=== PATIENT | female | born 1995 | race Caucasian/White ===

== ENCOUNTER 2023-02-15 12:02 | Inpatient (IN) ==
[2023-02-15] MEDS ORDERED: OXYTOCIN 30 UNITS/500 ML BAG IV PRN ×2 (18:45→21:30)
[2023-02-15] MEDS ORDERED: LIDOCAINE 1% LOCAL 20 ML VIAL INFIL PRN (18:45)
[2023-02-15] MEDS: LACTATED RINGER'S 1,000 ML IV PRN ×2 (19:09→20:07)
[2023-02-15] MEDS ORDERED: SODIUM CHLORIDE 0.9% PF INJ 10 ML VIAL ONE (19:27)
[2023-02-15] MEDS ORDERED: fentaNYL citrate PF 100 MCG/2 ML VIAL ONE (19:27)
[2023-02-15] MEDS ORDERED: ePHEDrine sulfate 50 MG/ML AMP ONE (19:27)
[2023-02-15] MEDS ORDERED: LIDOCAINE 2%/EPINEPHRINE 1:200,000 20 ML PF ONE (19:28)
[2023-02-15] MEDS ORDERED: fentaNYL 2MCG/ML ROPIVACAINE 1.25MG/ML 100 ML BAG EPI ONE (19:28)
[2023-02-15] MEDS ORDERED: BUPIVACAINE 0.25% PF 30 ML VIAL ONE (19:28)
[2023-02-15 19:50] LABS: Hematocrit (blood only) 30.3 % (37.0-47.0); Hemoglobin 10.3 g/dl (12.0-16.0); Mean Corpuscular Hemoglobin 28.7 pg (25.0-34.0); Mean Corpuscular Volume 84.4 fL (80.0-100.0); Mean Platelet Volume 12.5 fL (9.4-12.4); Platelet Count 187 K/uL (130-400); RDW Coefficient of Variation 13.2 % (11.5-14.5); RDW Standard Deviation 40.5 fL (36.4-46.3); Red Blood Count 3.59 M/uL (4.20-5.40); White Blood Count 10.64 K/ul (4.8-10.8)
[2023-02-15] MEDS ORDERED: ROPIVACAINE 0.5% PF 5 MG/ML 20 ML VIAL EPI PRN (20:36)
[2023-02-15] MEDS ORDERED: SODIUM CHLORIDE 0.9% PF INJ 10 ML VIAL EPI STA (20:36)
[2023-02-15] MEDS ORDERED: ePHEDrine sulfate 50 MG/ML AMP IV PRN (20:36)
[2023-02-15] MEDS ORDERED: fentaNYL citrate PF 100 MCG/2 ML VIAL EPI STA (20:36)
[2023-02-15] MEDS ORDERED: fentaNYL citrate PF 100 MCG/2 ML VIAL EPI PRN (20:36)
[2023-02-15] MEDS ORDERED: LIDOCAINE 2%/EPINEPHRINE 1:200,000 20 ML PF EPI STA (20:36)
[2023-02-15] MEDS ORDERED: SODIUM CHLORIDE 0.9% PF INJ 10 ML VIAL EPI PRN (20:36)
[2023-02-15] MEDS ORDERED: diphenhydrAMINE 50 MG/ML VIAL IV PRN (20:36)
[2023-02-15] MEDS ORDERED: NALOXONE HCL 0.4 MG/1 ML VIAL/CARP IV PRN (20:36)
[2023-02-15] MEDS ORDERED: BUPIVACAINE 0.25% PF 30 ML VIAL EPI PRN (20:36)
[2023-02-15] MEDS ORDERED: NALOXONE HCL 1 MG in SODIUM CHLORIDE 0.9% 1000ML 1,000 ML IV PRN (20:36)
[2023-02-15] MEDS ORDERED: LIDOCAINE 2% MPF LOCAL 5 ML VIAL EPI PRN (20:36)
[2023-02-15] MEDS ORDERED: ONDANSETRON INJ 2 MG/ML 2 ML VIAL IV PRN (20:36)
[2023-02-15] MEDS ORDERED: BUPIVACAINE 0.25% PF 30 ML VIAL EPI STA (20:36)
[2023-02-15] MEDS ORDERED: NALBUPHINE HCL INJ 10 MG/ML AMP IV PRN (20:36)
--- NOTE | 2023-02-15 20:36 | Anesthesiology Consultation ---
Date of Service February 15, 2023 Assessment & Plan Chart Review Chart Review: Patient NOT seen in Pre Admission Testing and Acceptable Risk for Labor Epidural Consults Requested none ASA ASA2 Proposed Anesthesia Anesthesia Type: Labor Epidural Risk / Benefits Reviewed With: PT / POA / Parent / Guardian, Accepts Plan and Informed Consent Obtained History Height/Weight Height: 5 ft 4 in Weight: 89.811 kg Allergies Allergy/AdvReac Type Severity Reaction Status Date / Time amoxicillin Allergy Unknown Hives Verified 02/15/23 12:22 cefixime [From Suprax] Allergy Unknown Hives Verified 02/15/23 12:22 ceftibuten [From Cedax] Allergy Unknown Hives Verified 02/15/23 12:22 Penicillins Allergy Unknown Hives Verified 02/15/23 12:22 Sulfa (Sulfonamide Allergy Unknown Hives Verified 02/15/23 12:22 Antibiotics) sulfamethoxazole Allergy Unknown Hives Verified 02/15/23 12:22 [From Bactrim] trimethoprim [From Bactrim] Allergy Unknown Hives Verified 02/15/23 12:22 Medications Home Medications Medication Instructions Recorded Confirmed Last Taken prenat.vits,adriana,jfd-[id number]-[id number] 1 tab PO DAILY 06/26/22 02/15/23 02/15/23 Active Medications Generic Name Dose Route Start Last Admin Trade Name Freq PRN Reason Stop Dose Admin Lactated Ringer's 1,000 mls @ 125 mls/hr 02/15/23 18:45 02/15/23 20:07 Lr IV 02/17/23 18:44 999 mls/hr .Q8H PRN Administration L&D Protocol Protocol Past Medical History Medical History (Updated 02/15/23 @ 12:19 by Mile Connolly RN) No known health problems Exercise / Class Metabolic Activity II 4-5 Yardwork/Stairs/Walk up hill Past Family History Family History Grandfather (Maternal) Diabetes Cancer of kidney Mother No problems noted. Grandmother (Paternal) No problems noted. Grandmother (Maternal) Sarcoma Denies family history of Ovarian cancer Breast cancer Colorectal cancer Past Surgical History Surgical History Hx of foot surgery Past Anesthesia History No Hx of Anesthesia Complications and No Family Hx of Anesthesia Complications History of PONV No Hx of PONV and No Hx of Motion Sickness Social History Smoking Status: Never smoker Do You Dip or Chew Tobacco: No Hx Alcohol Use: No Hx Substance Use: No substance use type: does not use Physical Exam Vital Signs Last Vital Signs Temp 37.0 C 02/15/23 17:04 Pulse 71 02/15/23 19:18 Resp 18 02/15/23 17:04 BP 122/68 02/15/23 19:18 ENMT Mouth: no dentition abnormality Thyromental Distance: > or= 3.5 Finger Breadths Mallampati Class: II Neck normal visual inspection Respiratory normal respiratory effort Auscultation: lungs clear to auscultation bilaterally Cardiovascular Rate/Rhythm: regular rate and regular rhythm Psychiatric Orientation: alert Testing Laboratory Results 02/15/23 19:10
--- NOTE | 2023-02-15 21:25 | History & Physical Report ---
Date of Service February 15, 2023 Assessment & Plan (1) Supervision of normal intrauterine in primigravida: Plan: Sunita is a 27-year-old currently at 40 weeks 5 days gestational age in labor. 1: Fetus-reactive NST 2: Labor-progressing spontaneously. AROM clear. Will augment as needed 3: GBS negative. 4: Vitals within normal limits. (2) Normal labor: Admission and Anticipated Discharge Date Admission Date: February 15, 2023 History of Present Illness Primary Care Provider: NO PCP Sunita is a 27-year-old currently at 40 weeks 5 days gestational age presents in labor. Denies leakage of fluid or vaginal bleeding reported good movement. has been uncomplicated to date. OB Labs: Blood Type A Positive 07/07/22 Antibody Screen NEGATIVE 07/07/22 Hemoglobin 11.9 g/dl (12.0-16.0) L 11/18/22 Hematocrit 34.8 % (37.0-47.0) L 11/18/22 Mean Corpuscular Volume 90.4 fL (80.0-100.0) 07/07/22 Platelet Count 230 K/uL (130-400) 07/07/22 Rubella IgG Antibody Immune (Immune) 07/07/22 Rapid Plasma Reagin Nonreactive (Nonreactive) 07/07/22 Hepatitis B Surface Antigen. NON-REACTIVE (NON-REACTIVE) 07/07/22 Hepatitis C Antibody (EIA) NON-REACTIVE (NON-REACTIVE) 07/07/22 HIV (1&2) Ag and Ab Confirmation NON-REACTIVE (NON-REACTIVE) 07/07/22 Glucose 1 Hour 50 gm Load 125 mg/dl (70-130) 11/18/22 Maternal Serum Alpha Fetoprotein 47.6 ng/mL 08/25/22 OB Optional Labs: Chlamydia trachomatis RNA Not Detected (NotDetected) 07/07/22 Neisseria gonorrhoeae RNA Not Detected (NotDetected) 07/07/22 Alpha Fetoprotein Triple Screen SEE NOTE 08/25/22 Labs Reviewed: cf/sma-negative--mln cfdna-low risk--mln Allergies Allergy/AdvReac Type Severity Reaction Status Date / Time amoxicillin Allergy Unknown Hives Verified 02/15/23 12:22 cefixime [From Suprax] Allergy Unknown Hives Verified 02/15/23 12:22 ceftibuten [From Cedax] Allergy Unknown Hives Verified 02/15/23 12:22 Penicillins Allergy Unknown Hives Verified 02/15/23 12:22 Sulfa (Sulfonamide Allergy Unknown Hives Verified 02/15/23 12:22 Antibiotics) sulfamethoxazole Allergy Unknown Hives Verified 02/15/23 12:22 [From Bactrim] trimethoprim [From Bactrim] Allergy Unknown Hives Verified 02/15/23 12:22 Home Medications Medication Instructions Recorded Confirmed Type prenat.vits,adriana,vei-mikj-vrlby 1 tab PO DAILY 06/26/22 02/15/23 History Patient History Medical History (Updated 02/15/23 @ 21:23 by Juan Miguel Vieira MD) No known health problems Surgical History Hx of foot surgery Family History Grandfather (Maternal) Diabetes Cancer of kidney Mother No problems noted. Grandmother (Paternal) No problems noted. Grandmother (Maternal) Sarcoma Denies family history of Ovarian cancer Breast cancer Colorectal cancer Social History Smoking Status: Never smoker Do You Dip or Chew Tobacco: No; Hx Alcohol Use: No Hx Substance Use: No Preferred Language: Romansh Bone Drier Required: No Beliefs That Will Affect Care: None marital status: marital status details: red (29) [phone] Current Living Situation: Spouse Current Living Situation Comment: lives with spouse, 1 dog. current occupational status: employed current occupation: [employer]. Feels Safe at Home: Yes Safety Concerns: Feels Safe At This Time Physical Activity Frequency: Daily Assistive Devices: None Physical Exam Genitourinary: normal external appearance OB Exam Monitor Tracing: + external FHT monitor used, + external uterine monitor used, + category I and + normal FHT variability Progressed from 3 cm dilated to 4 cm dilated over approximately 2 hours. Patient having regular painful contractions. Results & Data Vital Signs (Past 12 Hours) Vital Signs Temp Pulse Resp BP Pulse Ox 02/15/23 21:00 74 99 02/15/23 20:57 71 128/65 02/15/23 20:56 77 126/60 02/15/23 20:55 79 99 02/15/23 20:54 70 121/59 L 02/15/23 20:52 73 124/59 L 02/15/23 20:50 100 02/15/23 20:50 73 02/15/23 20:50 75 124/64 02/15/23 20:48 72 133/65 02/15/23 20:45 88 100 02/15/23 20:46 88 135/66 02/15/23 20:40 100 02/15/23 20:40 93 H 02/15/23 20:40 99 H 132/86 02/15/23 20:35 88 100 02/15/23 19:18 71 122/68 02/15/23 17:04 18 02/15/23 17:04 37.0 C 18 02/15/23 17:10 71 118/69 02/15/23 12:17 70 123/74 02/15/23 12:18 37.0 C 18 Coding Level of Care Code None Diagnoses Supervision of normal intrauterine in primigravida Z34.00 Normal labor O80; Z37.9
[2023-02-16] MEDS ORDERED: NURSING L&D Epidural Breakthrough Pain Update ONE (01:03)
[2023-02-16] MEDS: fentaNYL 2MCG/ML ROPIVACAINE 1.25MG/ML 100 ML BAG EPI PRN ×2 (02:37→08:55)
[2023-02-16] MEDS: LACTATED RINGER'S 1,000 ML IV PRN ×2 (04:48→10:41)
--- NOTE | 2023-02-16 09:07 | Labor Progress Brief Note ---
Date of Service February 16, 2023 Subjective comfortable and pushing, nauseated. Assessment & Plan (1) Normal labor: Plan continue second stage. Fetus category 2 and reassuring with occasional variable. Pushing with good effort. Is going to be a tight fit. Admission and Anticipated Discharge Date Admission Date: February 15, 2023 Physical Exam Physical Exam: cx--c/c/+1 toco--q2-4min, pit at 10 efm--130s with mod variability, accels present, occasional variable Results & Data Vital Signs (Past 12 Hours) Vital Signs Temp Pulse Resp BP Pulse Ox 02/16/23 09:00 59 L 99 02/16/23 08:58 57 L 129/65 02/16/23 08:55 60 100 02/16/23 08:50 72 99 02/16/23 08:45 60 100 02/16/23 08:43 63 127/61 02/16/23 08:40 88 100 02/16/23 08:35 85 99 02/16/23 08:30 82 20 100 02/16/23 08:29 65 113/56 L 02/16/23 08:25 77 100 02/16/23 08:20 83 100 02/16/23 08:15 82 100 02/16/23 08:14 61 136/61 02/16/23 08:10 58 L 98 02/16/23 08:05 59 L 99 02/16/23 08:00 64 18 98 02/16/23 07:59 60 119/61 02/16/23 07:55 61 98 02/16/23 07:50 56 L 99 02/16/23 07:45 60 99 02/16/23 07:43 69 126/71 02/16/23 07:40 69 98 02/16/23 07:35 69 98 02/16/23 07:30 36.9 C 78 18 98 02/16/23 07:29 65 130/68 02/16/23 07:25 68 99 02/16/23 07:20 63 97 02/16/23 07:15 70 97 02/16/23 07:14 75 111/59 L 02/16/23 07:10 68 97 02/16/23 07:05 63 98 02/16/23 07:00 66 96 02/16/23 06:58 60 138/74 02/16/23 06:55 61 98 02/16/23 06:50 60 97 02/16/23 06:45 58 L 98 02/16/23 06:44 63 133/69 02/16/23 06:40 61 97 02/16/23 06:35 59 L 98 02/16/23 06:30 61 97 02/16/23 06:29 60 128/70 02/16/23 06:25 60 98 02/16/23 06:20 62 98 02/16/23 06:15 65 97 02/16/23 06:13 62 129/71 02/16/23 06:10 65 98 02/16/23 06:05 68 99 02/16/23 06:00 64 99 02/16/23 05:58 58 L 136/72 02/16/23 05:55 60 98 02/16/23 05:50 63 98 02/16/23 05:45 60 98 02/16/23 05:43 65 147/72 H 02/16/23 05:40 72 98 02/16/23 05:35 71 99 02/16/23 05:30 72 99 02/16/23 05:28 78 119/73 02/16/23 05:25 67 99 02/16/23 05:20 96 H 99 02/16/23 05:15 77 98 02/16/23 05:14 83 139/82 02/16/23 05:10 71 97 02/16/23 05:05 63 99 02/16/23 05:00 62 98 02/16/23 04:58 69 131/70 02/16/23 04:55 60 98 02/16/23 04:50 67 99 02/16/23 04:49 78 126/74 91 02/16/23 04:45 75 98 02/16/23 04:40 56 L 97 02/16/23 04:35 60 97 02/16/23 04:30 36.7 C 58 L 16 97 02/16/23 04:25 58 L 97 02/16/23 04:20 64 98 02/16/23 04:15 66 100 02/16/23 04:10 64 99 02/16/23 04:05 65 98 02/16/23 04:00 81 99 02/16/23 03:59 72 136/89 02/16/23 03:55 75 99 02/16/23 03:50 77 99 02/16/23 03:45 87 99 02/16/23 03:43 77 117/63 02/16/23 03:40 75 98 02/16/23 03:35 85 100 02/16/23 03:30 63 97 02/16/23 03:28 60 105/56 L 02/16/23 03:25 59 L 97 02/16/23 03:20 60 98 02/16/23 03:15 63 98 02/16/23 03:13 59 L 115/60 02/16/23 03:10 59 L 97 02/16/23 03:05 62 98 02/16/23 03:00 61 99 02/16/23 02:59 63 121/65 02/16/23 02:55 61 100 02/16/23 02:50 73 100 02/16/23 02:45 62 100 02/16/23 02:43 67 113/60 02/16/23 02:40 71 100 02/16/23 02:35 80 100 02/16/23 02:30 78 99 02/16/23 02:28 83 123/73 02/16/23 02:25 92 H 100 02/16/23 02:24 79 113/65 02/16/23 02:20 99 02/16/23 02:20 79 02/16/23 02:20 78 171/114 H 02/16/23 02:15 65 98 02/16/23 02:10 63 98 02/16/23 02:05 76 99 02/16/23 02:00 75 98 02/16/23 01:59 80 115/80 02/16/23 01:55 63 97 02/16/23 01:50 59 L 97 02/16/23 01:45 57 L 99 02/16/23 01:44 55 L 91/52 L 02/16/23 01:40 55 L 97 02/16/23 01:35 61 98 02/16/23 01:30 57 L 99 02/16/23 01:28 65 85/51 L 02/16/23 01:25 36.7 C 66 16 99 02/16/23 01:20 83 99 02/16/23 01:15 60 100 02/16/23 01:10 75 99 02/16/23 01:05 61 98 02/16/23 01:00 36.7 C 84 16 99 02/16/23 00:55 72 99 02/16/23 00:50 64 98 02/16/23 00:45 77 97 02/16/23 00:43 70 132/77 02/16/23 00:40 64 98 02/16/23 00:35 63 98 02/16/23 00:30 68 98 02/16/23 00:28 65 130/88 02/16/23 00:25 62 98 02/16/23 00:20 70 100 02/16/23 00:15 70 99 02/16/23 00:14 72 125/84 02/16/23 00:10 76 100 02/16/23 00:05 63 98 02/16/23 00:00 67 99 02/15/23 23:58 74 130/68 02/15/23 23:55 81 99 02/15/23 23:50 85 100 02/15/23 23:45 71 100 02/15/23 23:43 68 134/75 02/15/23 23:40 73 100 02/15/23 23:35 72 100 02/15/23 23:30 75 100 02/15/23 23:29 64 138/78 02/15/23 23:25 90 100 02/15/23 23:20 81 100 02/15/23 23:15 87 100 02/15/23 23:14 69 120/85 02/15/23 23:10 64 100 02/15/23 23:05 82 98 02/15/23 23:00 74 99 02/15/23 22:59 71 114/60 02/15/23 22:55 71 97 02/15/23 22:50 59 L 98 02/15/23 22:45 63 98 02/15/23 22:44 65 131/64 02/15/23 22:40 64 97 02/15/23 22:35 66 96 02/15/23 22:30 60 97 02/15/23 22:28 65 119/56 L 02/15/23 22:25 62 99 02/15/23 22:20 76 100 02/15/23 22:15 74 99 02/15/23 22:13 73 131/69 02/15/23 22:10 69 98 02/15/23 22:05 72 99 02/15/23 22:00 69 99 02/15/23 21:59 68 132/65 02/15/23 21:55 66 99 02/15/23 21:50 69 99 02/15/23 21:45 79 100 02/15/23 21:44 120/70 02/15/23 21:40 81 100 02/15/23 21:35 76 99 02/15/23 21:30 36.7 C 70 16 98 02/15/23 21:29 73 134/65 02/15/23 21:25 68 99 02/15/23 21:20 69 98 02/15/23 21:15 81 98 02/15/23 21:13 73 139/66 02/15/23 21:10 88 99 02/15/23 21:05 72 99 Coding Level of Care Code None Diagnoses Normal labor O80; Z37.9
--- NOTE | 2023-02-16 10:51 | Labor Progress Brief Note ---
Date of Service February 16, 2023 Subjective Back pain with contractions. FHT 130-140s, mod variability, variable decels with pushing, returns to baseline after push [place] Q 2-3 SVE 10/100/+2 station, good pushing effort. Continue labor. Anticipate . Assessment & Plan Admission and Anticipated Discharge Date Admission Date: February 15, 2023 Results & Data Vital Signs (Past 12 Hours) Vital Signs Temp Pulse Resp BP Pulse Ox 02/16/23 10:46 71 98 02/16/23 10:43 81 111/59 L 02/16/23 10:41 66 98 02/16/23 10:36 66 97 02/16/23 10:31 61 99 02/16/23 10:29 61 119/62 02/16/23 10:26 69 100 02/16/23 10:21 69 98 02/16/23 10:16 68 97 02/16/23 10:15 58 L 118/53 L 02/16/23 10:10 69 98 02/16/23 10:05 73 97 02/16/23 10:04 77 93 02/16/23 10:00 75 20 98 02/16/23 09:59 71 92 02/16/23 09:55 68 98 02/16/23 09:50 74 98 02/16/23 09:45 71 99 02/16/23 09:40 65 98 02/16/23 09:35 69 98 02/16/23 09:33 20 02/16/23 09:33 36.8 C 20 02/16/23 09:32 69 89 L 02/16/23 09:30 58 L 20 98 02/16/23 09:29 59 L 100/55 L 02/16/23 09:25 61 98 02/16/23 09:26 65 93 02/16/23 09:20 63 100 02/16/23 09:15 73 100 02/16/23 09:14 58 L 113/59 L 02/16/23 09:10 66 100 02/16/23 09:07 20 02/16/23 09:07 20 02/16/23 09:05 61 98 02/16/23 09:00 59 L 20 99 02/16/23 08:58 57 L 129/65 02/16/23 08:55 60 100 02/16/23 08:50 72 99 02/16/23 08:45 60 100 02/16/23 08:43 63 127/61 02/16/23 08:40 88 100 02/16/23 08:35 85 99 02/16/23 08:30 82 20 100 02/16/23 08:29 65 113/56 L 02/16/23 08:25 77 100 02/16/23 08:20 83 100 02/16/23 08:15 82 100 02/16/23 08:14 61 136/61 02/16/23 08:10 58 L 98 02/16/23 08:05 59 L 99 02/16/23 08:00 64 18 98 02/16/23 07:59 60 119/61 02/16/23 07:55 61 98 02/16/23 07:50 56 L 99 02/16/23 07:45 60 99 02/16/23 07:43 69 126/71 02/16/23 07:40 69 98 02/16/23 07:35 69 98 02/16/23 07:30 36.9 C 78 18 98 02/16/23 07:29 65 130/68 02/16/23 07:25 68 99 02/16/23 07:20 63 97 02/16/23 07:15 70 97 02/16/23 07:14 75 111/59 L 02/16/23 07:10 68 97 02/16/23 07:05 63 98 02/16/23 07:00 66 96 02/16/23 06:58 60 138/74 02/16/23 06:55 61 98 02/16/23 06:50 60 97 02/16/23 06:45 58 L 98 02/16/23 06:44 63 133/69 02/16/23 06:40 61 97 02/16/23 06:35 59 L 98 02/16/23 06:30 61 97 02/16/23 06:29 60 128/70 02/16/23 06:25 60 98 02/16/23 06:20 62 98 02/16/23 06:15 65 97 02/16/23 06:13 62 129/71 02/16/23 06:10 65 98 02/16/23 06:05 68 99 02/16/23 06:00 64 99 02/16/23 05:58 58 L 136/72 02/16/23 05:55 60 98 02/16/23 05:50 63 98 02/16/23 05:45 60 98 02/16/23 05:43 65 147/72 H 02/16/23 05:40 72 98 02/16/23 05:35 71 99 02/16/23 05:30 72 99 02/16/23 05:28 78 119/73 02/16/23 05:25 67 99 02/16/23 05:20 96 H 99 02/16/23 05:15 77 98 02/16/23 05:14 83 139/82 02/16/23 05:10 71 97 02/16/23 05:05 63 99 02/16/23 05:00 62 98 02/16/23 04:58 69 131/70 02/16/23 04:55 60 98 02/16/23 04:50 67 99 02/16/23 04:49 78 126/74 91 02/16/23 04:45 75 98 02/16/23 04:40 56 L 97 02/16/23 04:35 60 97 02/16/23 04:30 36.7 C 58 L 16 97 02/16/23 04:25 58 L 97 02/16/23 04:20 64 98 02/16/23 04:15 66 100 02/16/23 04:10 64 99 02/16/23 04:05 65 98 02/16/23 04:00 81 99 02/16/23 03:59 72 136/89 02/16/23 03:55 75 99 02/16/23 03:50 77 99 02/16/23 03:45 87 99 02/16/23 03:43 77 117/63 02/16/23 03:40 75 98 02/16/23 03:35 85 100 02/16/23 03:30 63 97 02/16/23 03:28 60 105/56 L 02/16/23 03:25 59 L 97 02/16/23 03:20 60 98 02/16/23 03:15 63 98 02/16/23 03:13 59 L 115/60 02/16/23 03:10 59 L 97 02/16/23 03:05 62 98 02/16/23 03:00 61 99 02/16/23 02:59 63 121/65 02/16/23 02:55 61 100 07/31/23 02:50 73 100 02/16/23 02:45 62 100 02/16/23 02:43 67 113/60 02/16/23 02:40 71 100 02/16/23 02:35 80 100 02/16/23 02:30 78 99 02/16/23 02:28 83 123/73 02/16/23 02:25 92 H 100 02/16/23 02:24 79 113/65 02/16/23 02:20 99 02/16/23 02:20 79 02/16/23 02:20 78 171/114 H 02/16/23 02:15 65 98 02/16/23 02:10 63 98 02/16/23 02:05 76 99 02/16/23 02:00 75 98 02/16/23 01:59 80 115/80 02/16/23 01:55 63 97 02/16/23 01:50 59 L 97 02/16/23 01:45 57 L 99 02/16/23 01:44 55 L 91/52 L 02/16/23 01:40 55 L 97 02/16/23 01:35 61 98 02/16/23 01:30 57 L 99 02/16/23 01:28 65 85/51 L 02/16/23 01:25 36.7 C 66 16 99 02/16/23 01:20 83 99 02/16/23 01:15 60 100 02/16/23 01:10 75 99 02/16/23 01:05 61 98 02/16/23 01:00 36.7 C 84 16 99 02/16/23 00:55 72 99 02/16/23 00:50 64 98 02/16/23 00:45 77 97 02/16/23 00:43 70 132/77 02/16/23 00:40 64 98 02/16/23 00:35 63 98 02/16/23 00:30 68 98 02/16/23 00:28 65 130/88 02/16/23 00:25 62 98 02/16/23 00:20 70 100 02/16/23 00:15 70 99 02/16/23 00:14 72 125/84 02/16/23 00:10 76 100 02/16/23 00:05 63 98 07/31/23 00:00 67 99 02/15/23 23:58 74 130/68 02/15/23 23:55 81 99 02/15/23 23:50 85 100 02/15/23 23:45 71 100 02/15/23 23:43 68 134/75 02/15/23 23:40 73 100 02/15/23 23:35 72 100 02/15/23 23:30 75 100 02/15/23 23:29 64 138/78 02/15/23 23:25 90 100 02/15/23 23:20 81 100 02/15/23 23:15 87 100 02/15/23 23:14 69 120/85 02/15/23 23:10 64 100 02/15/23 23:05 82 98 02/15/23 23:00 74 99 02/15/23 22:59 71 114/60 02/15/23 22:55 71 97 Coding Level of Care Code None Diagnoses
[2023-02-16] MEDS ORDERED: HYDROCORTISONE ACETATE 25 MG SUPP PR PRN (11:57)
[2023-02-16] MEDS ORDERED: oxyCODONE/ACETAMINOPHEN 5mg/325mg TAB PO PRN (11:57)
[2023-02-16] MEDS ORDERED: BENZOCAINE 20% SPRY 85 APPLN/85 GM CAN EXT PRN (11:57)
[2023-02-16] MEDS ORDERED: bisacodyL 10 MG SUPP PR PRN (11:57)
[2023-02-16] MEDS ORDERED: ACETAMINOPHEN 325 MG TAB PO PRN (11:57)
[2023-02-16] MEDS ORDERED: OXYTOCIN 30 UNITS/500 ML BAG IV PRN (11:57)
[2023-02-16] MEDS ORDERED: DIPHTHERIA/TETANUS/PERTUSSIS Vaccine (Tdap, Age 7+yrs) 0.5mL SYR/VL IM ONE (11:57)
--- NOTE | 2023-02-16 11:58 | Delivery Summary ---
Vaginal Delivery Summary Date of Service February 16, 2023 Vaginal Delivery Summary and 1st Degree LAC Vaginal Delivery Summary: Pre-delivery diagnoses: 27yo @ 40 5/7, spontaneous labor Post-delivery diagnoses: same Procedure: spontaneous vaginal delivery Surgeon: Puja Aviles DO Complications: none Findings: Viable female . Apgars: 8/9 . Weight pending, please see nursery records Estimated blood loss: 300ml Description of delivery: The patient progressed to complete with epidural anesthesia. She then began to push. She spontaneously vaginally delivered a viable from the cephalic presentation. The head delivered in NELSON position. The anterior shoulder delivered, followed by the posterior shoulder, followed by the body. No nuchal cord. The baby was placed on mother's abdomen, did not have immediate cry - therefore cord was immediately clamped/cut and the baby handed off to nursery team. Baby crying before 1min with resuscitative efforts. A segment was retained for cord gases. Cord blood was obtained. The placenta was delivered spontaneously intact with a 3-vessel cord. The uterus and vagina were swept of clots and debris. IV pitocin was given. The uterus became firm. The cervix, vagina, and perineum were inspected and 1st degree perineal laceration, repaired with 3-0 Vicryl in standard fashion. Excellent hemostasis was observed. The mother and baby are recovering in stable and good condition in the room. Sponge, needle and instrument counts were correct x 2. Puja Aviles DO [facility] Vaginal Delivery Charge Vaginal Delivery Codes: 48632 global code for the antepartum, delivery, and post- Delivery Type Details: and 1st Degree LAC
[2023-02-16] MEDS ORDERED: CLINDAMYCIN/D5W 900 MG/50 ML BAG IV SCH (12:00)
[2023-02-16] MEDS ORDERED: OXYTOCIN 30 UNITS/500ML NSS IV ONE (12:03)
[2023-02-16 12:10] LABS: Base Excess Cord Arterial Bld -6.2 mEq/L (-9-1.8); CO2 Cord Arterial Blood 45 mmHg (39.1-73.5); HCO3 Cord Arterial Blood 21 mmol/L (19.7-28.5); Oxygen Sat Cord Arterial Blood < 60.0 % (<60); PO2 Cord Arterial Blood 23 mmHg (4.1-31.7); pH Cord Arterial Blood 7.27 (7.1-7.38)
[2023-02-16 12:12] LABS: Cord Venous Blood HCO3 20 mmol/L (18.4-26.8); Cord Venous Blood PCO2 38 mmHg (30.4-57.2); Cord Venous Blood PO2 31 mmHg (14.1-43.3); Cord Venous Blood pH 7.32 (7.20-7.44); O2 Saturation Cord Venous Bld < 60.0 % (<68)
[2023-02-16] MEDS: 300mg Q8H IV SCH ×2 (12:38→20:24)
[2023-02-16] MEDS: 600mg Q8H IV SCH ×2 (12:39→20:24)
--- NOTE | 2023-02-16 12:41 | Anesthesia Procedure Note ---
Date of Service February 16, 2023 Anesthesia Post Epidural Note Vital Signs Vital Signs: Temp Pulse Resp BP Pulse Ox 36.8 C 58 L 20 121/56 L 97 02/16/23 10:50 02/16/23 12:18 02/16/23 11:00 02/16/23 12:18 02/16/23 12:06 Pain Intensity Back: Pain Intensity: 0 Notes Mental Status: alert / awake / arousable and participated in evaluation Nausea / Vomiting: adequately controlled Pain: adequately controlled Airway Patency, RR, SpO2: stable & adequate BP & HR: stable & adequate Hydration State: stable & adequate Neuraxial Anesthesia: was administered and sensory block is resolving Anesthetic Complications: no major complications apparent and Pt Satisfied with anesthetic care Epidural: Removed without complications and With tip intact
[2023-02-16] MEDS: DOCUSATE SODIUM 100 MG CAP PO SCH (20:50)
[2023-02-16] MEDS: IBUPROFEN 600 MG TAB PO PRN (23:09)
[2023-02-17] MEDS: 600mg Q8H IV SCH ×2 (04:18→04:59)
[2023-02-17] MEDS: 300mg Q8H IV SCH ×2 (04:18→04:58)
[2023-02-17 06:18] LABS: Hematocrit (blood only) 24.5 % (37.0-47.0); Hemoglobin 8.2 g/dl (12.0-16.0)
--- NOTE | 2023-02-17 07:11 | Obstetrical Progress Note ---
Date of Service <Charline Foley MD - Last Filed: 02/17/23 08:41> February 17, 2023 Assessment & Plan <Charline Foley MD - Last Filed: 02/17/23 08:41> (1) Spontaneous vaginal delivery: Patient with the above mentioned history and findings was evaluated at bedside and found awake, alert, oriented in all spheres, afebrile, and in no acute distress. Overall, patient is doing well clinically. Therefore, will encourage ambulation as tolerated and will resume regular diet. Will continue monitoring pain levels and management with current regimen. Patient is encouraged to breastfeed and to notify changes in normal lochia such as excessive bleeding (using more than 1 pad per hour), foul smell, or purulent appearance. Should she remain clinically and hemodynamically stable, will consider discharge tomorrow. All questions were answered. <Puja Aviles DO - Last Filed: 02/17/23 09:07> (1) Spontaneous vaginal delivery: Subjective <Charline Foley MD - Last Filed: 02/17/23 08:41> Sunita is a 27 y/o female who is now PPD # 1 following at 40 6/7 weeks. Reports feeling well overall this morning. Refers moderate abdominal cramping & 3/10 pain well managed on analgesics. Voiding spontaneously. Tolerating meals overnight and able to ambulate some. She is passing gas but has not had a bowel movement. Some persistent lochia with some improvement this morning. . Blood type is A positive and Hb is 8.2. She is GBS negative and Rubella immune. Constitutional: no fever, no chills or no sweats Denies shortness of breath or difficulty breathing Cardiovascular: no chest pain or no palpitations Breast: no breast pain Genitourinary (female): no dysuria Neurologic: no headache(s) Denies changes in vision Physical Exam <Charline Foley MD - Last Filed: 02/17/23 08:41> General: Alert. Oriented to person, time, and place. Afebrile. No acute distress. Eyes: pupils equal and reactive to light bilaterally, extraocular movements intact. Cardiac: Regular rate and rhythm, no murmurs/rubs/gallops. Respiratory: Clear to auscultation bilaterally a/p, no wheezes/rales/rhonchi. No increased work of breathing. Symmetrical chest rise. No respiratory distress. Abdomen: Soft, nontender, nondistended. Bowel sounds present. Uterus: Uterine fundus firm, non-tender, and palpable below umbilicus. Lower Extremities: Bilateral LE swelling without pitting. No deep calf pain. Tiesha's negative bilaterally. Psych: Euthymic affect. Mood and affect congruence. Regular speech rate and content. Results & Data <Charline Foley MD - Last Filed: 02/17/23 08:41> Vital Signs (Past 12 Hours) Vital Signs Temp Pulse Resp BP Pulse Ox O2 Del Method 02/17/23 03:43 36.5 C 75 20 113/72 99 Room Air 02/16/23 23:06 36.8 C 79 18 109/71 97 Room Air 02/16/23 20:08 37.1 C 89 18 122/70 97 Room Air <Puja Aviles DO - Last Filed: 02/17/23 09:07> Co-Signing Physician Notes Resident Physician Supervision Note: I was present with Dr. Foley during the history and exam. I discussed the case with the resident and agree with the findings and plan as documented in the note. Any exceptions or clarifications are listed here: PPD#1 doing well. Working on . Documented By: Puja Aviles DO Resident Activity Tracking <Charline Foley MD - Last Filed: 02/17/23 08:41> Resident Involvement: Resident Care Provided Care Provided: OB Delivery
[2023-02-17] MEDS: PRENATAL VITAMIN 1 TAB PO SCH (08:39)
[2023-02-17] MEDS: DOCUSATE SODIUM 100 MG CAP PO SCH ×2 (08:39→20:32)
[2023-02-17] MEDS: IBUPROFEN 600 MG TAB PO PRN ×3 (09:15→21:29)
[2023-02-17] MEDS ORDERED: Nursing to Pharmacy Communication SCH (10:30)
[2023-02-17] MEDS ORDERED: bisacodyL 5 MG TABEC PO SCH (20:00)
[2023-02-18] MEDS: IBUPROFEN 600 MG TAB PO PRN ×2 (06:02→09:58)
--- NOTE | 2023-02-18 06:56 | Obstetrical Progress Note ---
Date of Service <Charline Foley MD - Last Filed: 02/18/23 06:57> February 18, 2023 Assessment & Plan <Charline Foley MD - Last Filed: 02/18/23 06:57> (1) Spontaneous vaginal delivery: Patient with the above mentioned history and findings was evaluated at bedside and found clinically and hemodynamically stable, afebrile, awake, alert, oriented x3, and in no acute distress. Overall she seems stable and is fit to go home today. Discharge instructions were discussed. Her pain will be managed with Tylenol, Advil, Ibuprofen, or Motrin PRN. She is to call to schedule and appointment with her OB for 6 weeks after discharge for her follow up evaluation. All questions were answered. <Yazmin Liriano MD - Last Filed: 02/18/23 07:08> (1) Spontaneous vaginal delivery: Subjective <Charline Foley MD - Last Filed: 02/18/23 06:57> Sunita is a 27 y/o female who is now PPD # 2 following at 40 6/7 weeks. Reports feeling well overall this morning. Refers moderate abdominal cramping & 2/10 pain well managed on analgesics. Voiding spontaneously. Tolerating meals overnight and able to ambulate some. She is passing gas but has not had a bowel movement. Some persistent lochia with some improvement this morning. . Blood type is A positive and Hb is 8.2. She is GBS negative and Rubella immune. Constitutional: no fever, no chills or no sweats Denies shortness of breath or difficulty breathing Cardiovascular: no chest pain or no palpitations Breast: no breast pain Genitourinary (female): no dysuria Neurologic: no headache(s) Denies changes in vision Physical Exam <Charline Foley MD - Last Filed: 02/18/23 06:57> General: Alert. Oriented to person, time, and place. Afebrile. No acute d istress. Eyes: pupils equal and reactive to light bilaterally, extraocular movements intact. Cardiac: Regular rate and rhythm, no murmurs/rubs/gallops. Respiratory: Clear to auscultation bilaterally a/p, no wheezes/rales/rhonchi. No increased work of breathing. Symmetrical chest rise. No respiratory distress. Abdomen: Soft, nontender, nondistended. Bowel sounds present. Uterus: Uterine fundus firm, non-tender, and palpable below umbilicus. Lower Extremities: Bilateral LE swelling without pitting. No deep calf pain. Tiesha's negative bilaterally. Psych: Euthymic affect. Mood and affect congruence. Regular speech rate and content. Results & Data <Charline Foley MD - Last Filed: 02/18/23 06:57> Vital Signs (Past 12 Hours) Vital Signs Temp Pulse Resp BP Pulse Ox O2 Del Method 02/17/23 23:55 36.8 C 73 18 130/81 99 Room Air <Yazmin Liriano MD - Last Filed: 02/18/23 07:08> Co-Signing Physician Notes Resident Physician Supervision Note: I interviewed and examined the patient. Discussed with Dr. Foely and agree with findings and plan as documented in the note. Any exceptions or clarifications are listed here: PP2 s/p , doing well. VSS, exam benign and wnl. STable for d/c home today Documented By: Yazmin Liriano MD Resident Activity Tracking <Charline Foley MD - Last Filed: 02/18/23 06:57> Resident Involvement: Resident Care Provided Care Provided: OB Delivery
[2023-02-18] MEDS: PRENATAL VITAMIN 1 TAB PO SCH (09:56)
[2023-02-18] MEDS: DOCUSATE SODIUM 100 MG CAP PO SCH (09:56)
== END 2023-02-18 12:45 | disposition home or self-care (01) | DRG 807 ==
LOC: OPB 12:02 → 4S1 12:04 → 4E2 02-16 15:53